=== PATIENT | male | born 1975 | race American Indian/Alaskan Native ===

== ENCOUNTER 2018-02-21 02:26 | Emergency (ER) | payer SELFPAY ==
[2018-02-21] MEDS ORDERED: CATAPRES ONE (04:58)
[2018-02-21] MEDS ORDERED: CATAPRES PO ONE (05:36)
[2018-02-21 05:38] VITALS: BP 172/110
[2018-02-21] MEDS ORDERED: XYLOCAINE 1% MPF 5 mL ONE (05:59)
[2018-02-21] MEDS ORDERED: XYLOCAINE 1% MPF 5 mL INFILTRATI ONE (06:01)
--- NOTE | 2018-02-21 06:01 | Emergency Department Report ---
ED Laceration HPI - HPI Chief Complaint: Laceration/Recheck/Suture Stated Complaint: CUT ABOVE LIP Time Seen by Provider: 02/21/18 05:59 Laceration Symptoms: No Foreign Body Sensation, No Numbness, No Weakness, No Pain Other History: 42-year-old -Citizen Of The [place] male presents to the emergency room for laceration to the left upper lip. Patient reports that he was drinking and fell off a chair. Patient denies any loss of consciousness no nausea vomiting no head injury. She reports he feels as if his tooth is gone to his lip. The patient's chart noticed that his blood pressure was elevated. Patient reported to the nurse that his blood pressure was elevated when he was incarcerated. He has been taking no medication for hypertension. ED Review of Systems ROS: Stated complaint: CUT ABOVE LIP Other details as noted in HPI Comment: All other systems reviewed and negative Skin: other (cut to left lip) ED Past Medical Hx - Past Medical History Previous Medical History?: Yes Hx Hypertension: Yes Hx Asthma: Yes - Surgical History Past Surgical History?: No - Social History Smoking Status: Current Every Day Smoker Substance Use Type: Alcohol - Medications Home Medications: Home Medications Medication Instructions Recorded Confirmed Last Taken Type Clindamycin [Clindamycin CAP] 300 mg PO Q8H 7 Days #21 cap 02/21/18 Unknown Rx Laceration Physical Exam - Exam General: Vital signs noted. No distress. Alert and acting appropriately. Wound Length (cm): 1 (left upper lip through and through) Laceration Exam: Yes Normal Distal CMS, No Foreign Body, No Exposed Tendon, Vessel, or Nerve, No Tendon Injury ED Course Vital Signs 02/21/18 02/21/18 02/21/18 02:34 04:53 05:05 Temperature 98.6 F Pulse Rate 127 H 108 H 108 H Respiratory 16 18 Rate Blood Pressure 179/113 182/118 Blood Pressure 182/118 [Right] O2 Sat by Pulse 99 99 Oximetry 02/21/18 05:38 Temperature Pulse Rate 99 H Respiratory Rate Blood Pressure Blood Pressure 172/110 [Right] O2 Sat by Pulse Oximetry - Laceration /Wound Repair Upper Jaw Wound Location: face (lip) Wound Length (cm): 1 Wound's Depth, Shape: into muscle, linear (linear), flap (internal flap) Wound Explored: no foreign body removed (on the outside) Irrigated w/ Saline (ccs): 45 Betadine Prep?: Yes Volume Anesthetic (ccs): 3 Wound Debrided: minimal Wound Repaired With: sutures Number of Sutures: 2 Deep Layer Suture Size/Type: 4:0, gut Number Deep Layer Sutures: 3 Sterile Dressing Applied?: No Progress: tolerated procedure well ED Medical Decision Making - Medical Decision Making Patient has been evaluated by this provider fast track. Suture repair of left lip internal and external Discussed the patient regarding his blood pressure being elevated Patient was given clonidine 0.1 mg Discussed patient to follow up with [facility] for full physical with blood work to evaluate for hypertension. Patient verbalized understanding Critical care attestation.: If time is entered above; I have spent that time in minutes in the direct care of this critically ill patient, excluding procedure time. ED Disposition Clinical Impression: HTN, goal below 130/80 Laceration of skin of lip Qualifiers: Encounter type: initial encounter Qualified Code(s): S01.511A - Laceration without foreign body of lip, initial encounter Laceration of cheek, left Qualifiers: Encounter type: initial encounter Qualified Code(s): S01.412A - Laceration without foreign body of left cheek and temporomandibular area, initial encounter Disposition: DC-01 TO HOME OR SELFCARE Is pt being admited?: No Does the pt Need Aspirin: No Condition: Stable Instructions: Suture Care (ED), Laceration (ED), Absorbable Suture Care (ED), DASH Eating Plan (ED), Low Sodium Diet (ED), Hypertension (ED) Additional Instructions: Please take antibiotics as prescribed. Return back to the emergency room in 7 days to have sutures removed from the outside appeared lip. Tylenol or ibuprofen for pain. Follow-up with [facility] for evaluation of elevated blood pressure. Prescriptions: Clindamycin [Clindamycin CAP] 300 mg PO Q8H 7 Days #21 cap Referrals: PRIMARY CARE [Primary Care Provider] - 3-5 Days [facility] [Provider Group] - 3-5 Days Forms: Work/School Release Form(ED)
== END 2018-02-21 06:50 | disposition home or self-care (01) ==
LOC: ED 02:26
DX: S01.511A Laceration without foreign body of lip, initial encounter (principal); S01.412A Laceration without foreign body of left cheek and temporomandibular area, initial encounter; J45.909 Unspecified asthma, uncomplicated; F17.200 Nicotine dependence, unspecified, uncomplicated; I10 Essential (primary) hypertension; W17.89XA Other fall from one level to another, initial encounter; Y93.89 Activity, other specified; Y99.8 Other external cause status; Y92.89 Other specified places as the place of occurrence of the external cause
CPT/HCPCS: 99282